=== PATIENT | female | born 1980 | race Caucasian/White ===

== ENCOUNTER 2020-03-01 01:21 | Emergency (ER) | payer OTHER ==
[~2020-03-01] VITALS: Ht 147.3 cm; Wt 78.5 kg
[2020-03-01 01:25] VITALS: BP_SYST 129
--- NOTE | 2020-03-01 01:25 | NUR ---
Patient triaged and placed in the tent. VSS and patient appears in no acute distress at this time. awaiting available bed, and MD notified of need for MSE.
--- NOTE | 2020-03-01 02:06 | NUR ---
Urine HCG done, results positive.
--- NOTE | 2020-03-01 02:06 | NUR ---
Note stephanie in [facility] - 03/01/20 at 0259 by SDEDPR Urine HCG done, results negative.
--- NOTE | 2020-03-01 02:30 | NUR ---
patient alert and oriented from home c/o of lower abdominal x 2 weeks. pt c/o diarrhea and watery bowel movements. patient reports her pain is a 7 out of 10. pt denies nausea or vomiting, fever, or chills. pt reports there is a possibility of being but has not taken a test or seen the doctor.
--- NOTE | 2020-03-01 02:38 | NUR ---
ER Dr. HERNANDEZ at bedside examining patient.
[2020-03-01] MEDS ORDERED: NACL 0.9% 1,000 ML IV ONE (02:45)
[2020-03-01] MEDS ORDERED: MORPHINE 2 MG/ML INJ. SYRINGE IVP ONE (02:45)
--- NOTE | 2020-03-01 03:15 | NUR ---
LAB AT BEDSIDE FOR BLOOD DRAW.
[2020-03-01 03:21] LABS: BASOPHILS # (AUTO) 0.1 K/uL (0.0-0.2); BASOPHILS % (AUTO) 0.6 % (0.0-2.0); EOSINOPHILS # (AUTO) 0.1 K/uL (0.0-0.4); HEMATOCRIT 43.4 % (36-48); HEMOGLOBIN 14.8 g/dL (12.0-16.0); LYMPHOCYTES # (AUTO) 1.8 K/uL (1.0-5.5); LYMPHOCYTES % (AUTO) 13.9 % (20.5-51.5); MEAN CORPUSCULAR HEMOGLOBIN 31 pg (27-31); MEAN CORPUSCULAR HGB CONC 34 % (32-36); MEAN CORPUSCULAR VOLUME 90 fL (79.0-98.0); MONOCYTES # (AUTO) 1.1 K/uL (0.0-1.0); MONOCYTES % (AUTO) 8.8 % (1.7-9.3); NEUTROPHILS # (AUTO) 9.9 K/uL (1.8-7.7); NEUTROPHILS % (AUTO) 75.7 % (40.0-70.0); PLATELET COUNT (AUTO) 391 K/uL (130-430); RED BLOOD CELL COUNT(AUTO) 4.85 MIL/uL (4.2-6.2); RED CELL DISTRIBUTION WIDTH 13.6 % (9.0-15.0); WHITE BLOOD COUNT (AUTO) 13.1 K/uL (4.8-10.8)
[2020-03-01 03:21] LABS: BILIRUBIN,URINE NEGATIVE (NEGATIVE); BLOOD, URINE NEGATIVE (NEGATIVE); CLARITY/URINE CLEAR (CLEAR); COLOR,URINE YELLOW (YELLOW); GLUCOSE,URINE NEGATIVE (NEGATIVE); KETONES,URINE TRACE (NEGATIVE); LEUKOCYTE ESTERASE ,URINE NEGATIVE (NEGATIVE); NITRITE, URINE NEGATIVE (NEGATIVE); PROTEIN URINE NEGATIVE (NEGATIVE); UROBILINOGEN,URINE 0.2 (0.2-1.0)
[2020-03-01 03:35] LABS: CALCIUM 9.3 mg/dL (8.4-11.0); CREATININE 0.58 mg/dL (0.55-1.30); POTASSIUM 3.9 mmol/L (3.5-5.1)
[2020-03-01 03:40] LABS: ALBUMIN 3.6 g/dL (3.4-4.8); TOTAL BILIRUBIN 0.8 mg/dL (0.0-1.0)
--- NOTE | 2020-03-01 04:02 | NUR ---
patient taken to ultrasound accompanied by
--- NOTE | 2020-03-01 05:03 | NUR ---
PATIENT RETURNED FROM [facility].
--- NOTE | 2020-03-01 05:20 | NUR ---
DR. HERNANDEZ SPEAKING WITH PATIENT.
[2020-03-01] MEDS ORDERED: ACETAMINOPHEN 500 MG TABLET PO ONE (05:30)
[2020-03-01] MEDS ORDERED: ACETAMINOPHEN 500 MG TABLET ONE (05:33)
--- NOTE | 2020-03-01 06:26 | NUR ---
Patient givenverbal discharge instructions by Dr Alexander verbalizes understanding. ER MD discussed with patient the results and treatment provided. Patient in stable condition. ID arm band removed. IV catheter removed intact and dressing applied, no active bleeding. no Rx of given. Patient educated on pain management and to follow up with PMD. Pain Scale 0/10. Opportunity for questions provided and answered. Medication side effect fact sheet provided. pt left w/o waiting for written ACI.
[2020-03-01 06:30] VITALS: BP_SYST 121
== END 2020-03-01 06:30 | disposition home or self-care (01) ==
LOC: SED 01:21
DX: O34.11 Maternal care for benign tumor of corpus uteri, first trimester (principal); R19.7 Diarrhea, unspecified; Z3A.01 Less than 8 weeks gestation of pregnancy
CPT/HCPCS: 36415; 76801; 76817; 80053; 81003; 82150; 83690; 85025; 96360; 99284; J7030